=== PATIENT | male | born 1975 | race Two or more races ===

== ENCOUNTER 2019-10-08 18:29 | Emergency (ER) | payer SELFPAY ==
[~2019-10-08] VITALS: Ht 180.3 cm; Wt 99.8 kg
[2019-10-08 18:36] VITALS: BP 153/105
[2019-10-08] MEDS ORDERED: ACETAMINOPHEN 500 MG TAB PO ONE (18:45)
== END 2019-10-08 19:17 | disposition home or self-care (01) ==
LOC: ER 18:29
DX: U07.1 COVID-19 (principal)
CPT/HCPCS: 71045; 99284; U0003